=== PATIENT | female | born 1980 | race Two or more races ===

== ENCOUNTER 2017-01-09 12:00 | Emergency (ER) | payer SELFPAY ==
[~2017-01-09] VITALS: Ht 149.9 cm; Wt 72.6 kg
[2017-01-09 12:07] VITALS: BP 120/79
[2017-01-09] MEDS ORDERED: NKM (12:10)
--- NOTE | 2017-01-09 12:27 | Emergency Room Report ---
History of Present Illness General Chief Complaint: Upper Extremity Injury Source: Patient Present Illness HPI The patient is a 36-year-old female presenting with left index finger pain after she states she jammed it into a wall at work. The patient describes the pain as a 9/10 dull ache it does not radiate from the index finger. Patient denies any numbness or tingling. Pain worse with touch or movement of the finger. The patient denies any prior injury to the finger. The patient denies any other symptoms including fever, chills Allergies: Coded Allergies: No Known Allergies (Unverified , 09/17/15) Patient History Past Medical History: see triage record Pertinent Family History: none Last Menstrual Period: 12/30/2016 Reviewed Nursing Documentation: PMH: Agreed, PSxH: Agreed Nursing Documentation-PMH Past Medical History: No Stated History Review of Systems All Other Systems: negative except mentioned in HPI Physical Exam Vital Signs Date Time Temp Pulse Resp B/P Pulse Ox O2 Delivery O2 Flow Rate FiO2 01/09/17 12:07 98.4 79 16 120/79 99 Room Air Sp02 EP Interpretation: reviewed, normal General Appearance: no apparent distress, alert, GCS 15, non-toxic Head: normocephalic, atraumatic Eyes: bilateral eye PERRL, bilateral eye normal inspection ENT: hearing grossly normal, normal pharynx, no angioedema, normal voice Musculoskeletal: back normal, digits/nails normal, gait/station normal, decreased range of motion - Limited AROM of PIPJ due to pain, tender - TTP over L index finger PIPJ. Neurologic: alert, oriented x3, responsive, motor strength/tone normal, sensory intact, speech normal Psychiatric: judgement/insight normal, memory normal, mood/affect normal, no suicidal/homicidal ideation Reflexes: 3+ bicep (R), 3+ bicep (L), 3+ tricep (R), 3+ tricep (L), 3+ knee (R) , 3+ knee (L) Skin: normal color, no rash, warm/dry, well hydrated Lymphatic: no adenopathy Procedures Splinting Splinting : Consent: Verbal Location: L index Pre-Made Type: metal Pre-Proc Neuro Vasc Exam: normal Post-Proc Neuro Vasc Exam: normal Patient Tolerated: Well Complications: None Medical Decision Making PA Attestation Dr. Frazier is my supervising physician. Patient management was discussed with my supervising physician Diagnostic Impression: Primary Impression: Sprain of finger, left ER Course The patient is a 36-year-old female presenting with left index finger pain Ddx considered include but not limited to sprain/strain, fracture, contusion PE: veitals WNL. NAD L index finger: decreased AROM of PIPJ due to pain. full PROM. No obvious deformity. No ecchymosis. TTP over PIPJ. SILT Xray of L hand unremarkable. Pt given motrin for pain and finger placed in splint. Pt DC'ed home with RICE instructions and ER precautions given. Other X-Ray Diagnostic Results Other X-Ray Diagnostic Results : X-Ray Ordered: L hand Date: Jan 09, 2017 EP Interpretation: Yes Findings: no fractures, no dislocation, no soft tissue swelling Number of Views: 3 PA Scribe Text I am acting as scribe for my supervising physician. My supervising physician's interpretation of the L hand xrays are there are no fractures, dislocations or soft tissue swelling. Last Vital Signs Date Time Temp Pulse Resp B/P Pulse Ox O2 Delivery O2 Flow Rate FiO2 01/09/17 12:07 98.4 73 16 120/79 99 Room Air Status: improved Disposition: HOME, SELF-CARE Condition: Improved Scripts Ibuprofen* (MOTRIN*) 600 Mg Tablet 600 MG ORAL Q8H Y for For Pain, #30 TAB 0 Refills Prov: HANNAH BAILEY 01/09/17 HANNAH BAILEY Jan 09, 2017 12:26
[2017-01-09] MEDS ORDERED: IBUPROFEN600 MG ORAL (12:53)
[2017-01-09 13:00] VITALS: BP 116/74
--- NOTE | 2017-01-10 08:35 | Diagnostic Imaging Report ---
Indication: PAIN Technique: 3 views left hand Comparison: none Findings: No acute fractures. No dislocations. Joint spaces are preserved Impression: Negative
== END 2017-01-09 13:04 | disposition home or self-care (01) ==
LOC: EMR 12:25
DX: S63.691A Other sprain of left index finger, initial encounter (principal); W22.01XA Walked into wall, initial encounter; Y92.9 Unspecified place or not applicable
CPT/HCPCS: 29130; 99283

== ENCOUNTER 2020-04-21 22:00 | Emergency (ER) | payer MEDICAID ==
[~2020-04-21] VITALS: Ht 149.9 cm; Wt 69.4 kg
[~2020-04-21 22:00] MED LIST: IBUPROFEN600 MG ORAL; NKM
[2020-04-21 22:10] VITALS: BP 122/86
--- NOTE | 2020-04-21 22:10 | NUR ---
ED Nurse Note: Patient walked into ED c/o bilateral eye pain. at time of arrival patient presents with discharge on both eyes with redness and yellow drainage onset for about 1 day now. patient rates her pain a 5/10 pain. patient is alert and oriented x4, ambulatory with a steady gait, VSS. will continue to monitor
[2020-04-21] MEDS ORDERED: OCUFLOX5 ML BOTH EYES (22:19)
[2020-04-21 22:25] VITALS: BP 118/82
--- NOTE | 2020-04-21 23:44 | Emergency Room Report ---
History of Present Illness General Chief Complaint: Eye Problems Source: Patient Present Illness HPI 39-year-old female presents with tearing and discharge to both eyes. Started yesterday. Pain is burning, 5 out of 10, nonradiating. Notes discharge. Denies fevers or chills. Denies runny nose cough or congestion. Denies sick contacts recent travel. No other aggravating relieving factors. Denies any other associated symptoms Allergies: Coded Allergies: No Known Allergies (Unverified , 09/17/15) COVID-19 Screening Contact w/high risk pt: No Recent Travel to affected area: No Experienced COVID-19 symptoms?: No COVID-19 Testing performed PANTRY ATTENDANT: No Patient History Past Medical History: none Past Surgical History: none Pertinent Family History: none Social History: Denies: smoking, alcohol use, drug use Last Menstrual Period: NA Now: No Immunizations: UTD Reviewed Nursing Documentation: PMH: Agreed; PSxH: Agreed Nursing Documentation-PMH Past Medical History: No Stated History Review of Systems All Other Systems: negative except mentioned in HPI Physical Exam Vital Signs Date Time Temp Pulse Resp B/P (MAP) Pulse Ox O2 Delivery O2 Flow Rate FiO2 04/21/20 22:07 98.4 85 18 122/86 (98) 98 04/21/20 22:10 Room Air Sp02 EP Interpretation: reviewed, normal General Appearance: no apparent distress, alert, GCS 15, non-toxic Head: normocephalic, atraumatic Eyes: bilateral eye PERRL, bilateral eye Scleral Injection, bilateral eye other - discharge both eyes ENT: hearing grossly normal, normal pharynx, no angioedema, normal voice Neck: full range of motion, supple/symm/no masses Respiratory: chest non-tender, lungs clear, normal breath sounds, speaking full sentences Cardiovascular #1: regular rate, rhythm, no edema Cardiovascular #2: 2+ carotid (R), 2+ carotid (L), 2+ radial (R), 2+ radial (L) , 2+ dorsalis pedis (R), 2+ dorsalis pedis (L) Gastrointestinal: normal bowel sounds, non tender, soft, non-distended, no guarding, no rebound Rectal: deferred Genitourinary: normal inspection, no CVA tenderness Musculoskeletal: back normal, normal range of motion, gait/station normal, non- tender Neurologic: alert, motor strength/tone normal, oriented x3, sensory intact, responsive, speech normal Psychiatric: judgement/insight normal, memory normal, mood/affect normal, no suicidal/homicidal ideation Reflexes: 3+ bicep (R), 3+ bicep (L), 3+ tricep (R), 3+ tricep (L), 3+ knee (R) , 3+ knee (L) Skin: no rash Lymphatic: no adenopathy Medical Decision Making Diagnostic Impression: Primary Impression: Conjunctivitis Qualified Codes: H10.9 - Unspecified conjunctivitis ER Course Hospital Course 39-year-old F presents to ED with bilateral eye redness and discharge Differential diagnoses include: conjunctivitis, traumatic iritis, foreign body, corneal abrasion Clinical course Patient placed on stretcher. After initial history, physical exam revealed a middle-aged female no acute distress. There is injected conjunctiva and both eyes. discharge noted. Pupils equally reactive to light bilaterally. No evidence of foreign body. Clinical findings consistent with conjunctivitis. Discussed findings with patient. Safe for discharge for close outpatient follow-up. I will write prescription for antibiotics. I will provide Optho referral Diagnosis - conjunctivitis Stable and discharged to home with prescription for Ocuflox. Followup with PMD/ Optho. Return to ED if symptoms recur or worsen Last Vital Signs Date Time Temp Pulse Resp B/P (MAP) Pulse Ox O2 Delivery O2 Flow Rate FiO2 04/21/20 22:25 98.4 82 18 118/82 98 Room Air Status: improved Disposition: HOME, SELF-CARE Condition: Stable Scripts Ofloxacin (OCUFLOX) 5 Ml Drops 1 DROP BOTH EYES QID for 7 Days, ML Prov: Eliseo Cardenas MD 04/21/20 Referrals: Baljit Yanez M.D., MD NOT CHOSEN IPA/,REFERRING Patient Instructions: Viral Conjunctivitis Eliseo Cardenas MD April 21, 2020 23:44
== END 2020-04-21 22:25 | disposition home or self-care (01) ==
LOC: EMR 22:25
DX: H10.9 Unspecified conjunctivitis (principal)
CPT/HCPCS: 99282